=== PATIENT | female | born 1945 | race Caucasian/White ===

== ENCOUNTER 2017-11-01 10:56 | Emergency (ER) | payer MEDICARE ==
[~2017-11-01] VITALS: Ht 167.6 cm; Wt 79.4 kg
[2017-11-01 10:56] VITALS: BP_SYST 153
[2017-11-01] MEDS ORDERED: KETOROLAC TROMETHAMINE 30 MG VIAL IM ONE (12:00)
[2017-11-01 12:38] VITALS: BP_SYST 142
== END 2017-11-01 12:38 | disposition home or self-care (01) ==
LOC: SED 10:56
DX: S33.9XXA Sprain of unspecified parts of lumbar spine and pelvis, initial encounter (principal); E11.9 Type 2 diabetes mellitus without complications; I10 Essential (primary) hypertension; V43.52XA Car driver injured in collision with other type car in traffic accident, initial encounter; Y93.89 Activity, other specified; Y92.488 Other paved roadways as the place of occurrence of the external cause; Y99.8 Other external cause status
CPT/HCPCS: 72110; 96372; 99284; J1885